=== PATIENT | male | born 1945 | race Caucasian/White ===

== ENCOUNTER → 2016-03-25 | Outpatient (CLI) | payer MEDICARE ==
[~2016-03-25] MED LIST: ASPI325T PO; CALA120T PO; CYMB30CA PO; FENO50TA PO; FISH1000 PO; FISH120014 PO; GABA600T PO; GLIP10TA6 PO; GLUC10TA3 PO; GLUC750T13 PO; GLUCTAB47 PO; HYZA100T6 PO; LEFL20 PO; NEUR600T PO; OXYC1TAB36 PO; PERC10TA27 PO; SIMV40TA PO; SITA100 PO; SITA1TAB2 PO; SULF500 PO; VERA120T3 PO
[2016-03-25 13:36] LABS: AUTOMATED NEUTROPHIL # 6.1 TH/MM3 (1.8-7.7); BASOPHIL # 0.1 TH/MM3 (0-0.2); BASOPHIL % 0.8 % (0.0-2.0); EOSINOPHIL # 0.3 TH/MM3 (0-0.4); EOSINOPHIL % 3.5 % (0.0-4.0); HEMATOCRIT 40.5 % (39.0-51.0); HEMO FLAGS DIFF FINAL; LYMPH % 11.7 % (9.0-44.0); MEAN CELL VOLUME 91.9 FL (80.0-100.0); MEAN CORPUSCULAR HEMOGLOBIN 31.5 PG (27.0-34.0); MEAN CORPUSCULAR HGB CONC 34.3 % (32.0-36.0); MONO % 11.4 % (0.0-8.0); NEUT % 72.6 % (16.0-70.0); PLATELET COUNT 210 TH/MM3 (150-450); RED BLOOD COUNT 4.41 MIL/MM3 (4.50-5.90); RED CELL DISTRIBUTION WIDTH 14.3 % (11.6-17.2); WHITE BLOOD COUNT 8.4 TH/MM3 (4.0-11.0)
--- NOTE | 2016-03-26 18:19 | EKG ---
Date Performed: 03/25/2016 Time Performed: 13:45:21 PTAGE: 70 years EKG: NORMAL Sinus rhythm NON DIAGNOSTIC T WAVE IN INFERIOR LEADS Compared to prior tracing no significant change PREVIOUS TRACING 09/14/2014 @ 11.31.33 DOCTOR: Roger Pena Interpretating Date/Time 03/26/2016 18:17:41
== END ==
LOC: CPRE 12:33
PROVIDERS: ATTEND Pain Medicine Interventional Pain Medicine
DX: Z01.812 Encounter for preprocedural laboratory examination (principal); Z01.810 Encounter for preprocedural cardiovascular examination; M54.5 Low back pain
CPT/HCPCS: 36415; 84132; 85025; 93005

== ENCOUNTER → 2016-03-27 | Day surgery (SDC) | payer MEDICARE ==
[~2016-03-27] MED LIST changes: -CALA120T PO; -FISH1000 PO; -GLUC10TA3 PO; -GLUCTAB47 PO; +INCOBOTULINUMTOXINA 100 UNITS VIAL IM ONE; -NEUR600T PO; -PERC10TA27 PO; -SITA100 PO; +SODIUM CHLORIDE 0.9% 10 ML VIAL ONE
--- NOTE | 2016-03-29 16:52 | M6 ---
cc: JAE TAN M.D. DATE: 03/27/2016 DATE OF : 1945 PROCEDURE Injection botulinum toxin type A (Xeomin) right trapezius and posterior cervical musculature. History and physical was completed and signed. Consent was signed. Procedure site was marked. Medications were listed and reconciled. Pain score was recorded. Allergies were noted. Time out was taken. Fluoroscopy time was recorded where applicable. Blood pressure cuff, pulse oximeter were applied. The patient was placed in the sitting position. The skin over the right cervical what shoulder area was prepped with alcohol. The areas of greatest spasticity were identified. A 27 gauge needle was used to inject a total of 100 units of Xeomin at six different locations corresponding to the areas of greatest spasticity. Following this the patient was observed in recovery area with stable vital signs prior to being discharged as W. MD LUIS Sanchez/annalise /8:28 AM /4:49 PM
== END | disposition home or self-care (01) ==
LOC: PHSDC 07:42
PROVIDERS: ATTEND Pain Medicine Interventional Pain Medicine
DX: G24.3 Spasmodic torticollis (principal); M54.2 Cervicalgia; M25.511 Pain in right shoulder
CPT/HCPCS: 64616; J0588

== ENCOUNTER → 2016-04-01 | Day surgery (SDC) | payer MEDICARE ==
[~2016-04-01] VITALS: Ht 188 cm; Wt 118.0 kg
[~2016-04-01] MED LIST changes: +BUPIVACAINE/EPINEPHRINE 0.5% PF 30 ML VIAL ONE; -INCOBOTULINUMTOXINA 100 UNITS VIAL IM ONE; +LACTATED RINGER'S 1000 ML INJ 1,000 ML ONE; +LIDOCAINE 1%/EPINEPHrine 1:100,000 SOLN 30 ML VIAL ONE; +PROPOFOL 200 MG/20 ML AMP IV ONE; -SODIUM CHLORIDE 0.9% 10 ML VIAL ONE; +SODIUM CHLORIDE 0.9% 20 ML VIAL ONE; +TETRACAINE 0.5% OPTH SOLN 2 ML BTL ONE; +ceFAZolin INJ 1,000 MG VIAL ONE; +oxyCODONE/ACETAMINOPHEN 5 MG/325 MG TAB ONE
[2016-04-01 11:04] VITALS: BP 154/79; PULSE 69; RESP 18; TEMP 97.8; O2SAT 94
[2016-04-01 13:30] VITALS: TEMP 98.1
[2016-04-01 14:25] VITALS: BP 143/66; PULSE 80; RESP 16; O2SAT 97
--- NOTE | 2016-04-01 14:57 | MP ---
cc: JAE TAN M.D. DATE OF SURGERY: 04/01/2016 1945 PROCEDURE Implantation of [employer] quad electrodes for cluneal nerve stimulation (two electrodes). PREPROCEDURE DIAGNOSIS Failed back syndrome with intractable pain. POSTPROCEDURE DIAGNOSIS Failed back syndrome with intractable pain. PROCEDURE NOTE IV was started in the holding area. The patient was given IV antibiotics and taken to the operating room, placed in the prone position, sedated and monitored by Anesthesia. His back was prepped with Chloraprep and draped with sterile drapes. Prior to that all pressure points had been checked. Then an area in the upper lumbar region was infiltrated with 0.5% Marcaine and an area in the left flank was also infiltrated. Then an incision was made in the upper lumbar region and a tunneling device was used to tunnel two Medtronics quad electrodes parallel to the spine approximately 3 inches lateral to the spine on each side. This was directly over the areas of pain which had been previously identified by the patient. Then each lead was anchored to the underlying tissue using a Silastic anchoring device and 2-0 Ethibond suture. Then an incision was made in the left flank and a subcutaneous pocket was created. A tunneling device was used to tunnel the stimulating leads to that left flank incision. Then the leads were connected to a Y connector by tightening Jeffery screws and covering the connection with a Silastic cover secured on each end with 2-0 Ethibond suture. Impedance was checked at the bedside and found to be appropriate in all of the electrodes. Then a final tunnel was made to tunnel the small distal extension from the subcutaneous pocket to exit further laterally on the patient's left flank. Then each incision was irrigated with Betadine and the incisions were closed using 3-0 Monocryl in the subcuticular tissue and 3-0 Nylon on the skin. The incisions were covered with sterile adhesive dressings and the patient was taken to the recovery room with stable vital signs, neurologically intact. W. MD LUIS Sanchez/RACHEAL /1:29 PM /2:52 PM
== END | disposition home or self-care (01) ==
LOC: CSDC 09:56 → EDSTATUS 12:30
PROVIDERS: ATTEND Pain Medicine Interventional Pain Medicine
DX: M96.1 Postlaminectomy syndrome, not elsewhere classified (principal); M54.5 Low back pain; I10 Essential (primary) hypertension
CPT/HCPCS: 00300; 64575; C1778; J0690; J7120